=== PATIENT | female | born 1995 | race Caucasian/White ===

== ENCOUNTER 2018-07-19 18:07 | Emergency (ER) | payer BC ==
[2018-07-19 18:48] VITALS: BP 121/78
--- NOTE | 2018-07-19 19:07 | UC ---
Ear Complaint HPI - HPI Summary HPI Summary: Patient presents to urgent care reporting 6 days progressive pain in her left ear. Patient with her tragus his peers. 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 Patient's been cleaning it with alcohol and feels that more dry. Patient states she's had some crusty drainage from this ear. Patient denies fevers or chills. Patient with mild pain at the site of the earring states it has not been out approximately 6 years. Patient without fevers or chills. Patient is not immunocompromise. No known MRSA. Patient is not taking anything for pain. Patient denies any sinus congestion sore throat or teeth pain. Patient states when she chews sometimes she feels refer pain in her ear. Patient's medications reviewed this visit. Tetanus is up-to-date. - History of Current Complaint Chief Complaint: UCEar Stated Complaint: EAR PAIN Time Seen by Provider: 07/19/18 18:45 Hx Obtained From: Patient Hx Last Menstrual Period: iud Onset/Duration: Gradual Onset Severity Initially: Moderate Severity Currently: Moderate Pain Intensity: 7 Pain Scale Used: 0-10 Numeric - Allergies/Home Medications Allergies/Adverse Reactions: Allergies Allergy/AdvReac Type Severity Reaction Status Date / Time No Known Allergies Allergy Unverified 07/19/18 18:48 Home Medications: Home Medications Clobetasol 0.05% OINT* 1 applic TOPICAL BID 07/19/18 [History Confirmed 07/19/18 ] PMH/Surg Hx/FS Hx/Imm Hx Previously Healthy: Yes - Surgical History Surgical History: None - Family History Known Family History: Positive: Non-Contributory - Social History Occupation: Student Lives: With Family Alcohol Use: Weekly Substance Use Type: None Smoking Status (MU): Never Smoked Tobacco Review of Systems All Other Systems Reviewed And Are Negative: Yes Constitutional: Negative: Fever, Fatigue Skin: Positive: Other - left tragus erythema ENT: Positive: Ear Ache - left tragus Is Patient Immunocompromised?: No Physical Exam - Summary Physical Exam Summary: Vital Signs Reviewed: Yes A+Ox3, no distress Eyes: Conjunctiva Clear, NIKKO. EOM intact and full ENT: Hearing grossly normal left ear: + edema, erythema and dry yellow cyrsted discharge on tragus with piercing. Pt with mild erythema outer margin of canal. TM wnl No mastoid pain mmmoist no exudate, erythema neck: supple Respiratory: Positive: No respiratory distress, No accessory muscle use Cardiovascular: skin color reflect adequate perfusion Musculoskeletal Exam: MULLEN x 4 without difficulty Neurological: Positive: Alert, ambulatory without difficulty Psychological: Positive: Normal Response To Family Skin: Positive: no rash, no ecchymosis, + erythema Triage Information Reviewed: Yes Vital Signs: Initial Vital Signs Temp 97.9 F 07/19/18 18:45 Pulse 58 07/19/18 18:45 Resp 18 07/19/18 18:45 BP 121/78 07/19/18 18:45 Pulse Ox 100 07/19/18 18:45 Ear Complaint Course/Dx - Course Course Of Treatment: Pt with erythema and drainage from left tragus progressive x 5 days. Pt with piercing at site x 5 days. Not immunocompromised. 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 The anterior ball flew off clamp - started to look and pt stated okay - i swept with papertowel- unable to easily find - pt reassured no need to continue looking REcommend [place] with hibicleanse Rx clinda, cipro drops strict return precautions Tdap UTD - Differential Dx/Diagnosis Provider Diagnosis: Cellulitis of tragus Discharge - Sign-Out/Discharge Documenting (check all that apply): Patient Departure All imaging exams completed and their final reports reviewed: No Studies - Discharge Plan Condition: Stable Disposition: HOME Prescriptions: Ciproflox/Dexameth OTIC.SUSP* [Ciprodex Otic*] 2 drop .SEE ORDER TID #1 bottle Clindamycin HCl 300 mg PO TID #21 capsule Patient Education Materials: Cellulitis (ED) Referrals: Moira Bello MD [Primary Care Provider] - Additional Instructions: Wash your wound with Hipicleanse or warn soapy water 2 times a day for 5 days - dry complete Apply ear drops as prescribed Take antibiotics as prescribed. These will likely cause diarrhea - eating yogurt or taking probiotics will help with diarrhea If you have increased reddenss, swelling, pain or fever it is recommended you go to the emergency department for further evaluation and treatment - Billing Disposition and Condition Condition: STABLE Disposition: Home
== END 2018-07-19 19:45 | disposition home or self-care (01) ==
LOC: UCEAST 18:07
DX: H60.12 Cellulitis of left external ear (principal)
CPT/HCPCS: 99212; G0463

== ENCOUNTER 2018-07-20 14:06 | Emergency (ER) | payer BC ==
--- NOTE | 2018-07-20 14:16 | UC ---
Skin Complaint HPI - HPI Summary HPI Summary: 22 yo female presents with left ear wound. She tells me that she was seen here yesterday and had a tragus earring removed and is being treated for an infection at the site with clindamycin, anbx ear drops, and hibiclens. Today she noticed some red bumps to her left neck, chin, right eyebrow, and right cheek. Also has some drainage from her left ear. 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 Endorses some slight decreased hearing in her left ear - sounds feel muffled. Denies fever, chills, streaking redness, or increased pain. - History of Current Complaint Time Seen by Provider: 07/20/18 14:16 Stated Complaint: RECHECK OF EAR PAIN Hx Obtained From: Patient Hx Last Menstrual Period: iud Onset/Duration: Gradual Onset Onset Severity: Mild Current Severity: Mild Pain Intensity: 4 Pain Scale Used: 0-10 Numeric - Allergy/Home Medications Allergies/Adverse Reactions: Allergies Allergy/AdvReac Type Severity Reaction Status Date / Time No Known Allergies Allergy Unverified 07/19/18 18:48 PMH/Surg Hx/FS Hx/Imm Hx - Additional Past Medical History Additional PMH: None - Surgical History Surgical History: None - Family History Known Family History: Positive: Non-Contributory - Social History Lives: With Family Alcohol Use: Weekly Substance Use Type: None Smoking Status (MU): Never Smoked Tobacco Review of Systems All Other Systems Reviewed And Are Negative: Yes Constitutional: Positive: Negative Skin: Positive: Rash, Other - Left ear wound Eyes: Positive: Negative ENT: Positive: Negative Respiratory: Positive: Negative Cardiovascular: Positive: Negative Neurological: Positive: Negative Psychological: Positive: Negative Physical Exam - Summary Physical Exam Summary: GENERAL: NAD. WDWN. No pain distress. SKIN: Left neck, chin, and right cheek with scant 1mm mildly erythematous areas of skin irritation. No edema, warmth, or streaking. Left tragus: raw dry skin with crusted yellow patch. HEENT: Head: AT/NC Eyes: EOM intact. Conjunctiva clear without inflammation or discharge. Ears: Hearing grossly normal. LEFT ear: canal with mild edema and scant white/yellow discharge. TMs intact, no bulging, erythema, or edema. No pain with auricular manipulation. No streaking, warmth, or further discharged expressed from ear/tragus on palpation. Nose: Nasal mucosa pink and moist. NTTP maxillary and frontal sinus. NECK: Supple. Nontender. No lymphadenopathy. CHEST: CTAB. No r/r/w. No accessory muscle use. Breathing comfortably and in no distress. CV: RRR. Without m/r/g. Pulses intact. Cap refill <2seconds NEURO: Alert. PSYCH: Age appropriate behavior. Triage Information Reviewed: Yes Vital Signs: Vital Signs: Temp Pulse Resp BP Pulse Ox 98.3 F 79 16 118/75 100 07/20/18 14:16 07/20/18 14:16 07/20/18 14:16 07/20/18 14:16 07/20/18 14:16 Vital Signs Reviewed: Yes Course/Dx - Course Course Of Treatment: Wound culture obtained from her left ear. I suspect her other facial skin eruptions are due to surrounding inflammation or irritation as they do not seem infectious or in store representative of spreading infection at this time. Her tragus appears dry and raw, thus will have her stop the hibiclens. Will have her use bactroban ointment on the outside of her tragus and on the other skin eruptions on neck/face. Continue clindamycin and anbx ear drops. Will write her a note to not use stethoscope as I believe this is causing further irritation. Advised if she develops fever, chills, warmth to area, edema, or streaking - go to the ED. - Diagnoses Provider Diagnosis: Cellulitis of tragus Discharge - Sign-Out/Discharge Documenting (check all that apply): Patient Departure All imaging exams completed and their final reports reviewed: No Studies - Discharge Plan Condition: Stable Disposition: HOME Prescriptions: Mupirocin 2% CREAM* [Bactroban 2% CREAM*] 1 applic TOPICAL BID #1 tube Patient Education Materials: Wound Infection (DC) Forms: *Gen. Provider Communication, *Work Release Referrals: Chioma Lam MD [Primary Care Provider] - Additional Instructions: Continue your antibiotic ear drops and oral antibiotic Stop using the cleaner wall (blue bottle) Use the Bactroban ointment on the outside areas of your face, but not inside your ear. If your symptoms worsen or do not improve within 48hours - please go to the ER - Billing Disposition and Condition Condition: STABLE Disposition: Home
[2018-07-20 14:23] VITALS: BP 118/75
[2018-07-20] MEDS ORDERED: Mupirocin 2% OINT* TUBE TOPICAL ONE (17:21)
== END 2018-07-20 15:09 | disposition home or self-care (01) ==
LOC: UCEAST 14:06
DX: H60.12 Cellulitis of left external ear (principal)
CPT/HCPCS: 87070; 87077; 87186; 87205; 87640; 87641; 99211; G0463

== ENCOUNTER 2018-10-20 20:30 | Emergency (ER) | payer BC ==
[2018-10-20 20:46] VITALS: BP 121/74
--- NOTE | 2018-10-20 20:51 | UC ---
Back Pain HPI - HPI Summary HPI Summary: 22 y/o female presents to the urgent care c/o Rt lower back pain sometimes radiating to the Rt lower abdomen w/ frequency and urgency on urination since Thursday s/p riding her 4 Guy. Pt reports Hx of Spondylolithesis at age 7 after an injury and sometimes she experiences back pain after she races her 4 wheelers. Pt states pain is sharp, 8/10 today constant in the back and intermittent in the RLQ. Pt states today she developed loose stools w/ decrease appetite and chills. LMP:05/2016 since IUD was placed. Today she has mild spotting possible her period. Pt denies N/V, SOB, diaphoresis, chest pain, dizziness, vaginal discharge or Hx of STD's. She has been drinking a lot of water and last dose of Aleve 400mg was this morning. - History of Current Complaint Chief Complaint: UCBackPain Stated Complaint: BACK PAIN Time Seen by Provider: 10/20/18 20:49 Hx Obtained From: Patient Hx Last Menstrual Period: iud sin 05/2016 ?: No - spotting today Onset/Duration: Gradual Onset, Lasting Days - 3 days, Still Present, Worse Since - today RT victorina elower back pain radiating to the Timing: Constant Severity Initially: Mild Severity Currently: Moderate Pain Intensity: 8 Pain Scale Used: 0-10 Numeric Back Pain: Is Discrete @ - RT lower back pain, Radiates To - RT lower abdomen Character: Spasmodic Aggravating Factor(s): Movement Alleviating Factor(s): Rest, OTC Meds - aleve 400mg Associated Signs And Symptoms: Negative: Swelling, Redness, Bruising, Fever, Numbness, Tingling, Flank Pain, Bladder Incontinence, Bowel Incontinence, Weight Loss, Pain with Weight Bearing - Risk Factors AAA Risk Factors: Negative TAD Risk Factors: Negative Cauda Equina Risk Factors: Negative Epidural Abscess Risk Factors: Negative - Allergies/Home Medications Allergies/Adverse Reactions: Allergies Allergy/AdvReac Type Severity Reaction Status Date / Time No Known Allergies Allergy Verified 10/21/18 01:05 PMH/Surg Hx/FS Hx/Imm Hx Previously Healthy: Yes Other Neurological History: spondylolithesis at age 7 s/p back injury - Surgical History Surgical History: None - Family History Known Family History: Positive: None - Pt denies FMHX, Non-Contributory - Social History Occupation: Employed Part-time Lives: With Family Alcohol Use: Weekly Substance Use Type: None Smoking Status (MU): Never Smoked Tobacco - Immunization History Vaccination Up to Date: Yes Review of Systems All Other Systems Reviewed And Are Negative: Yes Constitutional: Positive: Negative Skin: Positive: Negative Eyes: Positive: Negative ENT: Positive: Negative Respiratory: Positive: Negative Cardiovascular: Positive: Negative Gastrointestinal: Positive: Other - loose stool today Genitourinary: Positive: Dysuria, Frequency, Urgency Motor: Positive: Negative Neurovascular: Positive: Negative Musculoskeletal: Positive: Decreased ROM - lower back, Other: - RT side lower back radiating to the RLQ Neurological: Positive: Negative Psychological: Positive: Negative Is Patient Immunocompromised?: No Physical Exam - Summary Physical Exam Summary: Vital Signs Reviewed: Yes General:Patient is a well developed and nourished female who is sitting comfortable in the examining table. Patient is not in any acute respiratory distress. Eyes: Positive: Conjunctiva Clear - PERRLA, EOMI, fundi grossly normal ENT: Positive: Normal ENT inspection, Hearing grossly normal, Pharynx normal, TMs normal Neck: Positive: Supple, Nontender, No Lymphadenopathy Respiratory: Positive: Chest non-tender, Lungs clear, Normal breath sounds, No respiratory distress Cardiovascular: Positive: RRR,S1 and S2 present, No Murmur, Pulses Normal, Brisk Capillary Refill Abdomen Description: Positive: Nontender, Abd: Flat with no distention. No surface trauma, scars, incisions. hyperactive bowel sounds present in all four quadrants. B/L lower quadrants w/ tenderness to palpation RT>LF, no guarding, or rigidity to palpation. No masses palpated, no pulsation in epigastric area. No organomegaly. Negative [place] signs. Mild periumbilical tenderness. No rebound in the lower quadrants. point tenderness over McBurneys point. Good femoral pulses bilaterally. No hernia noted. RT CVAT, No Left CVAT Musculoskeletal: Positive: Strength Intact, BACK: Patient walked into the urgent care room with symmetric ambulation, No signs of limping, antalgic, able to bear weight. No signs of trauma, No masses palpated. RT side Point tenderness at the level of L5-S1, RT CVAT, no flank ecchymosis . No sacroiliac notch tenderness, No saddle anesthesia.ROM: limited due to pain, Straight Leg Raise: negative. Patellar reflexes: brisk, symmetric Muscle strength lower extremities. Dorsiflexion/ plantar flexion of ankles. Heel/ toe walk. Lower extremities: Femoral, popliteal, posterior tibial, and dorsalis pedis pulses WNL. Pt refuse rectal exam. Neuro: Alert and oriented x 3. No acute neurological deficits. Speech is normal. Psychological: WNL Skin: Dry and warm Triage Information Reviewed: Yes Vital Signs: Initial Vital Signs Temp 100.4 F 10/20/18 20:34 Pulse 93 10/20/18 20:34 Resp 18 10/20/18 20:34 BP 121/74 10/20/18 20:34 Pulse Ox 98 10/20/18 20:34 Back Pain Course/Dx - Course Course Of Treatment: 22 y/o female presents to the urgent care c/o Rt lower back pain sometimes radiating to the Rt lower abdomen w/ frequency and urgency on urination since Thursday s/p riding her 4 Guy. Pt reports Hx of Spondylolithesis at age 7 after an injury and sometimes she experiences back pain after she races her 4 wheelers. Pt states pain is sharp, 8/10 today constant in the back and intermittent in the RLQ. Pt states today she developed loose stools w/ decrease appetite and chills. LMP:05/2016 since IUD was placed. Today she has mild spotting possible her period. Pt denies N/V, SOB, diaphoresis, chest pain, dizziness, vaginal discharge or Hx of STD's. She has been drinking a lot of water and last dose of Aleve 400mg was this morning. Hx obtained. Pt Hemodynamically stable w/ hyperactive bowel sounds present in all four quadrants. RLQ abdominal tenderness, w/ mild guarding and RT CVA tenderness on examination. UA ordered: +trace of blood and leukoesteraces. test: negative. Pt also w/ Hx of spondylolithesis s/p injury at age 7. I think patient needs blood work and images to r/o appendicitis or it can be pyelonephritis or ovarian cyst rupture or torsion. Pt's symptoms discussed w/ Dr Frank who also agrees Pt needs to go to the ER for further management to r /o appendicitis , pyelonephritis or possible ovarian cyst or ovarian torsion etc. Pt Highly recommended to go to the [facility] for further management due to her presenting symptoms. Pt offered ambulance transfer and risks of not taking it. Pt declined and states she will go by private car w/ her Mother. Pt left the clinic hemodynamically stable , A&OX3 and ambulating. - Differential Dx/Diagnosis Differential Diagnosis/HQI/PQRI: Compressive Cord Syndrome, Herniated Disc, Renal Colic, Strain, Sprain, Other - appendicitis, pyelonephritis, UTI, Provider Diagnosis: Right lower quadrant abdominal pain, Acute right-sided back pain Discharge - Sign-Out/Discharge Documenting (check all that apply): Patient Departure - Do to your presenting symptoms I think you need a higher level of care for further management in your symptoms All imaging exams completed and their final reports reviewed: No Studies - Discharge Plan Condition: Stable Disposition: HOME-RECOMMEND TO ED Patient Education Materials: Acute Abdominal Pain (ED) Referrals: Chioma Lam MD [Primary Care Provider] - Additional Instructions: I think you need a higher level or care for your presenting symptoms. I highly recommend you to go to the ER for further evaluation and treatment. The risks of not going can be , sepsis, pyelonephritis, appendicitis, peritonitis etc - Billing Disposition and Condition Condition: STABLE Disposition: Home-Recommend to ED
[2018-10-20] MEDS ORDERED: Ibuprofen TAB* 400 MG PO ONE (21:09)
== END 2018-10-20 21:47 | disposition home health service (06) ==
LOC: UCEAST 20:30
DX: R10.31 Right lower quadrant pain (principal); R10.9 Unspecified abdominal pain; M54.5 Low back pain
CPT/HCPCS: 81002; 81025; 87077; 87086; 87186; 99212; A9270-GY; G0463

== ENCOUNTER 2018-10-20 22:32 | Emergency (ER) | payer BC ==
[2018-10-21 01:11] LABS: Urine Appearance Turbid; Urine Bacteria 3+ (Absent); Urine Bilirubin Negative (Negative); Urine Blood 2+ (Negative); Urine Color Yellow; Urine Glucose Negative (Negative); Urine Ketones Negative (Negative); Urine Nitrite Positive (Negative); Urine Protein 2+(100 mg/dL) (Negative); Urine Red Blood Cell 3+(>10/hpf) (Absent); Urine Specific Gravity 1.017 (1.010-1.030); Urine Squamous Epithelial Cell Present (Absent); Urine Urobilinogen Negative (Negative); Urine White Blood Cell 3+(>20/hpf) (Absent)
[2018-10-21] MEDS ORDERED: Ketorolac INJ* 30 MG/ML 1 ML VIAL IV PUSH ONE (01:27)
[2018-10-21] MEDS ORDERED: Acetaminophen TAB* 325 MG PO ONE (01:27)
[2018-10-21] MEDS ORDERED: Levofloxacin 500 MG IVPREMIX(* 500 MG/100 ML BAG IVPB ONE (01:28)
[2018-10-21] MEDS ORDERED: NS 0.9% 1000 ML** 1,000 ML IV ONE (01:28)
[2018-10-21 03:41] LABS: Albumin/Globulin Ratio 1.2 (1-3); BUN/Creatinine Ratio 14.8 (8-20); EGFR African American 98.1 (>60); EGFR Non-African American 81.1 (>60); Globulin 3.3 g/dL (2-4)
[2018-10-21 03:42] LABS: ABS Basophils 0.1 10^3/ul (0-0.2); ABS Eosinophils 0.1 10^3/ul (0-0.6); ABS Lymphocytes 1.5 10^3/ul (1.0-4.8); ABS Monocytes 2.1 10^3/ul (0-0.8); ABS Neutrophils 16.4 10^3/ul (1.5-7.7); Albumin 4.1 g/dL (3.2-5.2); C Reactive Protein 106.25 mg/L (<8.01); Calcium 9.3 mg/dL (8.6-10.3); Eosinophil % 0.5 %; Hematocrit 37 % (35-47); Hemoglobin 12.2 g/dL (12.0-16.0); Lymphocyte % 7.6 %; Mean Corpuscular HGB Conc 33 g/dL (31-36); Mean Corpuscular Hemoglobin 30 pg (27-31); Mean Corpuscular Volume 90 fL (80-97); Mean Platelet Volume 7.9 fL (7.4-10.4); Platelet Count 230 10^3/uL (150-450); Potassium 3.8 mmol/L (3.5-5.0); Red Cell Distribution Width 13 % (10-15); Total Bilirubin 1.1 mg/dL (0.2-1.0); Total Protein 7.4 g/dL (6.4-8.9); White Blood Count 20.2 10^3/uL (3.5-10.8)
--- NOTE | 2018-10-21 04:22 | ED ---
Back Pain - HPI Summary HPI Summary: Pt is a 22 year old F presenting to [facility] accompanied by mother with a chief complaint of right flank pain with radiation to RLQ. Pain onset of 4 days ago. Patient reports fever started today with 100.4 F at [facility]. Patient denies vomiting and hx of kidney infection. 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 Symptoms aggravated by nothing. Symptoms alleviated by nothing. - History of Current Complaint Chief Complaint: EDFlankPain Stated Complaint: BACK PAIN, FROM CC PER PT Time Seen by Provider: 10/21/18 01:24 Hx Obtained From: Patient Hx Last Menstrual Period: iud sin 05/2016 Onset/Duration: Lasting Days - 4 Onset/Duration: Still Present Back Pain Location: Is Discrete @ - right flank Pain Intensity: 8 Pain Scale Used: 0-10 Numeric Aggravating Symptom(s): Nothing Alleviating Symptom(s): Nothing Associated Signs And Symptoms: Positive: Fever, Abdominal Pain - RLQ, Flank Pain - right, Other - no vomitting or urinary symptoms - Allergies/Home Medications Allergies/Adverse Reactions: Allergies Allergy/AdvReac Type Severity Reaction Status Date / Time No Known Allergies Allergy Verified 10/21/18 01:05 PMH/Surg Hx/FS Hx/Imm Hx Endocrine/Hematology History: Denies: Hx Diabetes, Hx Thyroid Disease Cardiovascular History: Denies: Hx Hypertension Respiratory History: Denies: Hx Asthma, Hx Chronic Obstructive Pulmonary Disease (COPD) GI History: Denies: Hx Ulcer - Surgical History Surgery Procedure, Year, and Place: None Infectious Disease History: No Infectious Disease History: Denies: Hx Hepatitis, Hx Human Immunodeficiency Virus (HIV), Traveled Outside the [place] in Last 30 Days - Family History Known Family History: Negative: Diabetes - Social History Alcohol Use: Weekly Hx Substance Use: No Substance Use Type: Reports: None Hx Tobacco Use: No Smoking Status (MU): Never Smoked Tobacco Review of Systems Positive: Fever Positive: Abdominal Pain - RLQ. Negative: Vomiting Positive: no symptoms reported, flank pain - right All Other Systems Reviewed And Are Negative: Yes Physical Exam - Summary Physical Exam Summary: VITAL SIGNS: Reviewed. GENERAL: Patient is a well-developed and nourished FEMALE who is lying comfortable in the stretcher. Patient is not in any acute respiratory distress. HEAD AND FACE: No signs of trauma. No ecchymosis, hematomas or skull depressions. No sinus tenderness. EYES: PERRLA, EOMI x 2, No injected conjunctiva, no nystagmus. EARS: Hearing grossly intact. Ear canals and tympanic membranes are within normal limits. MOUTH: Oropharynx within normal limits. NECK: Supple, trachea is midline, no adenopathy, no JVD, no carotid bruit, no c- spine tenderness, neck with full ROM CHEST: Symmetric, no tenderness at palpation LUNGS: Clear to auscultation bilaterally. No wheezing or crackles. CVS: Regular rate and rhythm, S1 and S2 present, no murmurs or gallops appreciated. ABDOMEN: Right CVA tenderness and RLQ tenderness EXTREMITIES: FROM in all major joints, no edema, no cyanosis or clubbing. NEURO: Alert and oriented x 3. No acute neurological deficits. Speech is normal and follows commands. SKIN: Dry and warm Triage Information Reviewed: Yes Vital Signs On Initial Exam: Initial Vitals Temp Pulse Resp BP Pulse Ox 98.9 F 84 16 119/72 98 10/20/18 22:33 10/20/18 22:33 10/20/18 22:33 10/20/18 22:33 10/20/18 22:33 Vital Signs Reviewed: Yes Diagnostics - Vital Signs Vital Signs Temp Pulse Resp BP Pulse Ox 10/21/18 00:45 99.2 F 73 16 120/72 99 10/20/18 22:33 98.9 F 84 16 119/72 98 - Laboratory Lab Results: Lab Results 10/21/18 10/21/18 10/21/18 Range/Units 00:53 02:07 02:07 WBC 20.2 H (3.5-10.8) 10^3/uL RBC 4.10 (3.70-4.87) 10^6 /uL Hgb 12.2 (12.0-16.0) g/dL Hct 37 (35-47) % MCV 90 (80-97) fL MCH 30 (27-31) pg MCHC 33 (31-36) g/dL RDW 13 (10-15) % Plt Count 230 (150-450) 10^3/uL MPV 7.9 (7.4-10.4) fL Neut % (Auto) 81.1 % Lymph % (Auto) 7.6 % [place] % (Auto) 10.6 % Eos % (Auto) 0.5 % Baso % (Auto) 0.2 % Absolute Neuts (auto) 16.4 H (1.5-7.7) 10^3/ul Absolute Lymphs (auto) 1.5 (1.0-4.8) 10^3/ul Absolute Monos (auto) 2.1 H (0-0.8) 10^3/ul Absolute Eos (auto) 0.1 (0-0.6) 10^3/ul Absolute Basos (auto) 0.1 (0-0.2) 10^3/ul Absolute Nucleated RBC 0.0 10^3/ul Nucleated RBC % 0.0 Sodium 138 (135-145) mmol/L Potassium 3.8 (3.5-5.0) mmol/L Chloride 105 (101-111) mmol/L Carbon Dioxide 24 (22-32) mmol/L Anion Gap 9 (2-11) mmol/L BUN 13 (6-24) mg/dL Creatinine 0.88 (0.51-0.95) mg/dL Est GFR ( Amer) 98.1 (>60) Est GFR (Non-Af Amer) 81.1 (>60) BUN/Creatinine Ratio 14.8 (8-20) Glucose 108 H (70-100) mg/dL Calcium 9.3 (8.6-10.3) mg/dL Total Bilirubin 1.10 H (0.2-1.0) mg/dL AST 17 (13-39) U/L ALT 8 (7-52) U/L Alkaline Phosphatase 59 (34-104) U/L C-Reactive Protein 106.25 H (<8.01) mg/L Total Protein 7.4 (6.4-8.9) g/dL Albumin 4.1 (3.2-5.2) g/dL Globulin 3.3 (2-4) g/dL Albumin/Globulin Ratio 1.2 (1-3) Urine Color Yellow Urine Appearance Turbid Urine pH 5.0 (5-9) Ur Specific [place] 1.017 (1.010-1.030) Urine Protein 2+(100 mg/dl) A (Negative) Urine Ketones Negative (Negative) Urine Blood 2+ A (Negative) Urine Nitrate Positive A (Negative) Urine Bilirubin Negative (Negative) Urine Urobilinogen Negative (Negative) Ur Leukocyte Esterase 3+ A (Negative) Urine WBC (Auto) 3+(>20/hpf) A (Absent) Urine RBC (Auto) 3+(>10/hpf) A (Absent) Ur Squamous Epith Cells Present A (Absent) Urine Bacteria 3+ A (Absent) Urine Yeast Present A (Absent) Urine Glucose Negative (Negative) Result Diagrams: 10/21/18 02:07 10/21/18 02:07 Lab Statement: Any lab studies that have been ordered have been reviewed, and results considered in the medical decision making process. Back Pain Course/Dx - Course Course Of Treatment: Pt is a 22 year old F presenting to [facility] accompanied by mother with a chief complaint of right flank pain with radiation to RLQ. Pain onset of 4 days ago. Patient reports fever started today with 100.4 F at pending sale to [facility]. Patient denies vomiting and hx of kidney infection. 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 Symptoms aggravated by nothing. Symptoms alleviated by nothing. Physical exam shows no abnormalities except for right CVA tenderness and right lower quadrant tenderness. Blood work shows no abnormalities except for WBC 20.2 H, Absolute Neuts 16.4 H, Absolute Monos 2.1 H, Glucose 108 H, Total Bilirubin 1.10 H, and C-Reactive Protein 106.25. Urinalysis shows no abnormalities except for urine protein 2+ (100 mg/dl) A, Urine Blood 2+ A, Urine Nitrate Positive A, Ur Leukocyte Esterase 3+ A, Urine WBC 3+ (>20/hpf ) A, Urine RBC 3+ (>10/hpf) A, Ur Squamous Epith Cells Present A , Urine Bacteria 3+ A, and Urine Yeast Present A. Patient was given acetaminophen 975 mg PO, Ketorolac Tromethamine 15 mg IV, Levfloxacin/Dextrose 100 mls/hr, and saline. Physician discussed discharge with patient. Patient agrees with discharge. Patient will be discharged. Patient intends to follow up with primary care provider within 3 days. - Diagnoses Provider Diagnoses: Pyelonephritis Discharge - Sign-Out/Discharge Documenting (check all that apply): Patient Departure - discharge Patient Received Moderate/Deep Sedation with Procedure: No - Discharge Plan Condition: Stable Disposition: HOME Prescriptions: Ibuprofen TAB* [Motrin TAB* 600 MG] 600 mg PO Q6H PRN #30 tab PRN Reason: Pain Or Fever Levofloxacin TAB* [Levaquin TAB*] 500 mg PO DAILY #7 tab Patient Education Materials: Kidney Infection (ED) Referrals: Chioma Lam MD [Primary Care Provider] - 3 Days Additional Instructions: Follow up with primary care provider within 3 days. PLEASE RETURN TO THE ED IMMEDIATELY FOR WORSENING OR CONCERNING SYMPTOMS. - Attestation Statements Document Initiated by Scribe: Yes Documenting Scribe: Tigist Schwab Provider For Whom Scribe is Documenting (Include Credential): Jonnathan Marks MD Scribe Attestation: IDominick Alison Kim, scribed for Jonnathan Marks MD on 10/21/18 at 0517. Status of Scribe Document: Ready
[2018-10-21 04:33] VITALS: BP 103/54
--- NOTE | 2018-10-21 16:39 | PN ---
Progress Note - Progress Note Date of Service: 10/21/18 Note: Blood culture came back positive for gram-negative bacilli on the preliminary. Call patient and spoke with patient and patient is feeling better. Told patient if feels worse or develop fever to return.
--- NOTE | 2018-10-21 18:18 | PN ---
Progress Note - Progress Note Date of Service: 10/21/18 Note: Per progress note by Dayana CUELLAR earlier today patient was called about results of preliminary blood cultures positive for gram-negative bacilli. Patient stated she was feeling better, and was advised to return to the ED if she had fever over 100.4 or was feeling worse. Patient called later at 5:55pm and I spoke to her. Patient stated she was having fever 100.9 and asked if she should come in. Patient was advised that she had gram-negative bacilli in her blood on preliminary blood culture results and that she should come into the ED for further evaluation. Parents called back at 9 PM with further questions. I called back at 9:30 PM. Patient stated she was okay with this provider speaking to her mother on the phone about her medical condition. Mother was advised as well that patient was positive on preliminary blood culture for gram-negative bacilli and that patient should return to the ED for further evaluation and treatment. Patient' s mother stated she would bring the patient over to the ED now.
== END 2018-10-21 04:32 | disposition home or self-care (01) ==
LOC: ED 22:32
DX: N12 Tubulo-interstitial nephritis, not specified as acute or chronic (principal)
CPT/HCPCS: 36415; 80053; 81003; 81015; 85025; 86140; 87040; 87077; 87186; 87205; 96365; 96375; 99282; A9270-GY; J1885; J1956

== ENCOUNTER 2018-10-21 22:12 | Inpatient (IN) | payer BC ==
[2018-10-22] MEDS ORDERED: NS 0.9% 1000 ML** 1,000 ML IV.FLUID IV ONE (00:32)
[2018-10-22] MEDS ORDERED: cefTRIAXone(*) 1 GM in NS 0.9% 50 ML* 50 ML IVPB ONE (00:34)
[2018-10-22] MEDS ORDERED: Ketorolac INJ* 30 MG/ML 1 ML VIAL IV PUSH ONE (00:44)
[2018-10-22 01:26] LABS: Hematocrit 34 % (35-47); Hemoglobin 11.6 g/dL (12.0-16.0); Mean Corpuscular HGB Conc 35 g/dL (31-36); Mean Corpuscular Hemoglobin 31 pg (27-31); Mean Corpuscular Volume 89 fL (80-97); Mean Platelet Volume 8.4 fL (7.4-10.4); Platelet Count 194 10^3/uL (150-450); Red Blood Count 3.79 10^6 /uL (3.70-4.87); Red Cell Distribution Width 13 % (10-15); White Blood Count 21.1 10^3/uL (3.5-10.8)
[2018-10-22 01:34] LABS: Activated Partial Thrombo Time 34.6 seconds (26.0-38.0); INR 1.58 (0.82-1.09)
[2018-10-22 01:43] LABS: Albumin 3.4 g/dL (3.2-5.2); Albumin/Globulin Ratio 1.2 (1-3); BUN/Creatinine Ratio 10.4 (8-20); C Reactive Protein 214.57 mg/L (<8.01); Calcium 8.4 mg/dL (8.6-10.3); EGFR African American 114.5 (>60); EGFR Non-African American 94.6 (>60); Globulin 2.9 g/dL (2-4); Potassium 3.4 mmol/L (3.5-5.0); Total Bilirubin 0.7 mg/dL (0.2-1.0); Total Protein 6.3 g/dL (6.4-8.9)
[2018-10-22] MEDS: NS 0.9% IVPB SCH ×2 (01:43→07:12)
[2018-10-22] MEDS: OXACILLIN IVPB SCH ×2 (01:43→07:12)
[2018-10-22 01:45] LABS: Troponin I 0.03 ng/mL (<0.04)
[2018-10-22 02:07] LABS: ABS Eosinophils 0.1 10^3/ul (0-0.6); ABS Lymphocytes 1.2 10^3/ul (1.0-4.8); ABS Monocytes 2.6 10^3/ul (0-0.8); ABS Neutrophils 17.1 10^3/ul (1.5-7.7); Eosinophil % 0.4 %; Lymphocyte % 5.6 %
[2018-10-22 03:00] LABS: Urine Appearance Clear; Urine Bacteria Absent (Absent); Urine Bilirubin Negative (Negative); Urine Blood 2+ (Negative); Urine Color Yellow; Urine Glucose Negative (Negative); Urine Ketones Negative (Negative); Urine Nitrite Negative (Negative); Urine Protein Negative (Negative); Urine Red Blood Cell Trace(0-2/hpf) (Absent); Urine Specific Gravity 1.008 (1.010-1.030); Urine Squamous Epithelial Cell Present (Absent); Urine Urobilinogen Negative (Negative); Urine White Blood Cell 3+(>20/hpf) (Absent)
--- NOTE | 2018-10-22 03:48 | ED ---
Abdominal Pain/Female - HPI Summary HPI Summary: This patient is a 22 year old F presenting to [facility] with a chief complaint of kidney infection since 2 days ago. Pt states she was at [facility] on 10/20/18, where she was diagnosed with a kidney infection and placed on Levofloxacin. Pt says that she was called by staff to come back in d/t + blood culture. Pt notes her pain is still present despite taking ibuprofen at 2300 yesterday. Patient denies pain to palpation. The patient rates the pain 6/10 in severity. Symptoms aggravated by nothing. Symptoms alleviated by nothing. - History of Current Complaint Chief Complaint: EDGeneral Stated Complaint: KIDNEY INFECTION PER PT Time Seen by Provider: 10/21/18 22:21 Hx Obtained From: Patient Hx Last Menstrual Period: iud sin 05/2016 ?: No Onset/Duration: Sudden Onset Timing: Constant Severity Initially: Moderate Severity Currently: Moderate Pain Intensity: 6 Pain Scale Used: 0-10 Numeric Aggravating Factor(s): Nothing Alleviating Factor(s): Nothing Associated Signs and Symptoms: Positive: Other: - negative - pain to palpation Allergies/Adverse Reactions: Allergies Allergy/AdvReac Type Severity Reaction Status Date / Time No Known Allergies Allergy Verified 10/21/18 22:18 PMH/Surg Hx/FS Hx/Imm Hx Previously Healthy: No Endocrine/Hematology History: Denies: Hx Diabetes, Hx Thyroid Disease Cardiovascular History: Denies: Hx Hypertension Respiratory History: Denies: Hx Asthma, Hx Chronic Obstructive Pulmonary Disease (COPD) GI History: Denies: Hx Ulcer - Surgical History Surgical History: None Surgery Procedure, Year, and Place: None Infectious Disease History: No Infectious Disease History: Denies: Hx Hepatitis, Hx Human Immunodeficiency Virus (HIV), Traveled Outside the [place] in Last 30 Days - Family History Known Family History: Positive: None - Pt denies FMHX, Non-Contributory Negative: Diabetes - Social History Alcohol Use: Weekly Hx Substance Use: No Substance Use Type: Reports: None Hx Tobacco Use: No Smoking Status (MU): Never Smoked Tobacco Do You Chew or Dip Tobacco: No Have You Chewed or Dipped Tobacco in the LAST YEAR: No Have You Smoked in the Last Year: No Review of Systems Negative: Fever Musculoskeletal: Other - negative - pain to palpation All Other Systems Reviewed And Are Negative: Yes Physical Exam - Summary Physical Exam Summary: VITAL SIGNS: Reviewed. GENERAL: Patient is a well-developed and nourished FEMALE who is lying comfortable in the stretcher. Patient is not in any acute respiratory distress. HEAD AND FACE: No signs of trauma. No ecchymosis, hematomas or skull depressions. No sinus tenderness. EYES: PERRLA, EOMI x 2, No injected conjunctiva, no nystagmus. EARS: Hearing grossly intact. Ear canals and tympanic membranes are within normal limits. MOUTH: Oropharynx within normal limits. NECK: Supple, trachea is midline, no adenopathy, no JVD, no carotid bruit, no c- spine tenderness, neck with full ROM CHEST: Symmetric, no tenderness at palpation LUNGS: Clear to auscultation bilaterally. No wheezing or crackles. CVS: Regular rate and rhythm, S1 and S2 present, no murmurs or gallops appreciated. ABDOMEN: Soft, right CVA tenderness. No signs of distention. No rebound no guarding, and no masses palpated. Bowel sounds are normal. EXTREMITIES: FROM in all major joints, no edema, no cyanosis or clubbing. NEURO: Alert and oriented x 3. No acute neurological deficits. Speech is normal and follows commands. SKIN: Dry and warm Triage Information Reviewed: Yes Vital Signs On Initial Exam: Initial Vitals Temp Pulse Resp BP Pulse Ox 99.2 F 108 16 125/75 100 10/21/18 22:14 10/21/18 22:14 10/21/18 22:14 10/21/18 22:14 10/21/18 22:14 Vital Signs Reviewed: Yes Diagnostics - Vital Signs Vital Signs Temp Pulse Resp BP Pulse Ox 10/22/18 02:29 96 99 10/22/18 01:46 99.6 F 10/22/18 01:44 90 98 10/22/18 01:10 100.9 F 10/22/18 00:39 123 120/70 99 10/22/18 00:32 100 10/21/18 22:14 99.2 F 108 16 125/75 100 - Laboratory Lab Results: Lab Results 10/22/18 10/22/18 10/22/18 Range/Units 01:11 01:11 01:11 WBC 21.1 H (3.5-10.8) 10^3/uL RBC 3.79 (3.70-4.87) 10^6 /uL Hgb 11.6 L (12.0-16.0) g/dL Hct 34 L (35-47) % MCV 89 (80-97) fL MCH 31 (27-31) pg MCHC 35 (31-36) g/dL RDW 13 (10-15) % Plt Count 194 (150-450) 10^3/uL MPV 8.4 (7.4-10.4) fL Neut % (Auto) 81.5 % Lymph % (Auto) 5.6 % [place] % (Auto) 12.4 % Eos % (Auto) 0.4 % Baso % (Auto) 0.1 % Absolute Neuts (auto) 17.1 H (1.5-7.7) 10^3/ul Absolute Lymphs (auto) 1.2 (1.0-4.8) 10^3/ul Absolute Monos (auto) 2.6 H (0-0.8) 10^3/ul Absolute Eos (auto) 0.1 (0-0.6) 10^3/ul Absolute Basos (auto) 0.0 (0-0.2) 10^3/ul Absolute Nucleated RBC 0.0 10^3/ul Nucleated RBC % 0.0 INR (Anticoag Therapy) 1.58 H (0.82-1.09) APTT 34.6 (26.0-38.0) seconds Sodium 136 (135-145) mmol/L Potassium 3.4 L (3.5-5.0) mmol/L Chloride 108 (101-111) mmol/L Carbon Dioxide 20 L (22-32) mmol/L Anion Gap 8 (2-11) mmol/L BUN 8 (6-24) mg/dL Creatinine 0.77 (0.51-0.95) mg/dL Est GFR ( Amer) 114.5 (>60) Est GFR (Non-Af Amer) 94.6 (>60) BUN/Creatinine Ratio 10.4 (8-20) Glucose 116 H (70-100) mg/dL Lactic Acid (0.5-2.0) mmol/L Calcium 8.4 L (8.6-10.3) mg/dL Total Bilirubin 0.70 (0.2-1.0) mg/dL AST 14 (13-39) U/L ALT 7 (7-52) U/L Alkaline Phosphatase 57 (34-104) U/L Troponin I 0.03 (<0.04) ng/mL C-Reactive Protein 214.57 H (<8.01) mg/L Total Protein 6.3 L (6.4-8.9) g/dL Albumin 3.4 (3.2-5.2) g/dL Globulin 2.9 (2-4) g/dL Albumin/Globulin Ratio 1.2 (1-3) Urine Color Urine Appearance Urine pH (5-9) Ur Specific [place] (1.010-1.030) Urine Protein (Negative) Urine Ketones (Negative) Urine Blood (Negative) Urine Nitrate (Negative) Urine Bilirubin (Negative) Urine Urobilinogen (Negative) Ur Leukocyte Esterase (Negative) Urine WBC (Auto) (Absent) Urine RBC (Auto) (Absent) Ur Squamous Epith Cells (Absent) Urine Bacteria (Absent) Urine Glucose (Negative) 10/22/18 10/22/18 Range/Units 01:11 02:29 WBC (3.5-10.8) 10^3/uL RBC (3.70-4.87) 10^6 /uL Hgb (12.0-16.0) g/dL Hct (35-47) % MCV (80-97) fL MCH (27-31) pg MCHC (31-36) g/dL RDW (10-15) % Plt Count (150-450) 10^3/uL MPV (7.4-10.4) fL Neut % (Auto) % Lymph % (Auto) % [place] % (Auto) % Eos % (Auto) % Baso % (Auto) % Absolute Neuts (auto) (1.5-7.7) 10^3/ul Absolute Lymphs (auto) (1.0-4.8) 10^3/ul Absolute Monos (auto) (0-0.8) 10^3/ul Absolute Eos (auto) (0-0.6) 10^3/ul Absolute Basos (auto) (0-0.2) 10^3/ul Absolute Nucleated RBC 10^3/ul Nucleated RBC % INR (Anticoag Therapy) (0.82-1.09) APTT (26.0-38.0) seconds Sodium (135-145) mmol/L Potassium (3.5-5.0) mmol/L Chloride (101-111) mmol/L Carbon Dioxide (22-32) mmol/L Anion Gap (2-11) mmol/L BUN (6-24) mg/dL Creatinine (0.51-0.95) mg/dL Est GFR ( Amer) (>60) Est GFR (Non-Af Amer) (>60) BUN/Creatinine Ratio (8-20) Glucose (70-100) mg/dL Lactic Acid 0.5 (0.5-2.0) mmol/L Calcium (8.6-10.3) mg/dL Total Bilirubin (0.2-1.0) mg/dL AST (13-39) U/L ALT (7-52) U/L Alkaline Phosphatase (34-104) U/L Troponin I (<0.04) ng/mL C-Reactive Protein (<8.01) mg/L Total Protein (6.4-8.9) g/dL Albumin (3.2-5.2) g/dL Globulin (2-4) g/dL Albumin/Globulin Ratio (1-3) Urine Color Yellow Urine Appearance Clear Urine pH 6.0 (5-9) Ur Specific [place] 1.008 L (1.010-1.030) Urine Protein Negative (Negative) Urine Ketones Negative (Negative) Urine Blood 2+ A (Negative) Urine Nitrate Negative (Negative) Urine Bilirubin Negative (Negative) Urine Urobilinogen Negative (Negative) Ur Leukocyte Esterase 2+ A (Negative) Urine WBC (Auto) 3+(>20/hpf) A (Absent) Urine RBC (Auto) Trace(0-2/hpf) (Absent) Ur Squamous Epith Cells Present A (Absent) Urine Bacteria Absent (Absent) Urine Glucose Negative (Negative) Result Diagrams: 10/22/18 01:11 10/22/18 01:11 Lab Statement: Any lab studies that have been ordered have been reviewed, and results considered in the medical decision making process. - Ultrasound Renal Ultrasound Interpretation Completed By: Radiologist Summary of Ultrasound Findings: IMPRESSION: Kidneys appear within normal limits. These findings were reviewed by Dr. Marks. Abdominal Pain Fem Course/Dx - Course Course Of Treatment: This patient is a 22 year old F presenting to [facility] with a chief complaint of kidney infection since 2 days ago. Pt states she was at [facility] on 10/20/18, where she was diagnosed with a kidney infection and placed on Levofloxacin. Pt says that she was called by staff to come back in d/t + blood culture. Pt notes her pain is still present despite taking ibuprofen at 2300 yesterday. Patient denies pain to palpation. The patient rates the pain 6/10 in severity. Symptoms aggravated by nothing. Symptoms alleviated by nothing. Physical exam shows right CVA tenderness. Lab results show WBC 21.1, Hgb 11.6, Hct 34, absolute neuts 17.1, absolute monos 2.6, INR 1.58, potassium 3.4, carbon dioxide 20, glucose 116, calcium 8.4, C-reactive protein 214.57, total protein 6.3, Ur specific gravity 1.008, urine blood 2+ A, Ur leukocyte esterase 2+ A, urine WBC 3+ A, Ur squamous epith cells present A. Renal US IMPRESSION: Kidneys appear within normal limits. During ED course, the pt was given Toradol INJ, fluids, Oxacillin, and Rocephin. Dx are right pyelonephritis and bacteremia. At 0120, Dr. Marks discusses pt's case with Dr. Sadler, hospitalist, who agrees to admit pt. Pt is agreeable. - Diagnoses Provider Diagnoses: Pyelonephritis of right kidney, Bacteremia Is Visit Related: No - Provider Notifications Discussed Care Of Patient With: Sukhjinder Sadler Time Discussed With Above Provider: 01:20 Instructed by Provider To: Other - Dr. Marks discusses pt's case with Dr. Sadler , hospitalist, who agrees to admit pt. Discharge - Sign-Out/Discharge Documenting (check all that apply): Patient Departure - admit Patient Received Moderate/Deep Sedation with Procedure: No - Discharge Plan Condition: Stable Disposition: ADMITTED TO [facility] Referrals: Chioma Lam MD [Primary Care Provider] - - Attestation Statements Document Initiated by Scribe: Yes Documenting Scribe: aTj Escalera Provider For Whom Scribe is Documenting (Include Credential): Dr. Jonnathan Marks MD Scribe Attestation: Taj Benton, scribed for Dr. Jonnathan Marks MD on 10/22/18 at 0404. Status of Scribe Document: Ready
--- NOTE | 2018-10-22 03:54 | HP ---
History of Present Illness - History of Present Illness Reason for Visit: Positive blood cultures History of Present Illness: This patient is a 22 year old Female diagnosed with pyelonephritis 2 days ago sent home on levaquin was called back to ED due to positive blood culture with gram negative rods. Patient still having right flank pain which is not relieved by the ibuprofen she took. No other urinary burning sensation. Fever of 100.9 at home. Past Medical History None Past Surgical History Mucoceal removal on lip Family History Mom and dad alive and well. No family history of any medical problems. Social History No smoking, alcohol in moderation, no drugs. Just graduated college [employer] degree. Allergies Allergy/AdvReac Type Severity Reaction Status Date / Time No Known Allergies Allergy Verified 10/21/18 22:18 Home Medications Medication Instructions Recorded Confirmed Type Ibuprofen TAB* [Motrin TAB* 600 MG] 600 mg PO Q6H PRN #30 tab 10/21/18 10/22/18 Rx Levofloxacin TAB* [Levaquin TAB*] 500 mg PO DAILY #7 tab 10/21/18 10/22/18 Rx Review of Systems - Measurements Intake and Output: Intake and Output Last 24 Hours 10/19/18 10/20/18 10/21/18 10/22/18 06:59 06:59 06:59 06:59 Intake Total 1820 Balance 1820 Weight 130 lb Intake: IV Fluids 1820 - Review of Systems Constitutional Symptoms: Positive: Fever Dermatology: Negative: Rash Cardiology: Negative: Chest Pain, Shortness of Breath, Palpitations Gastroenterology: Positive: Nausea Negative: Abdominal Pain, Vomiting Genital - Urinary: Positive: Other - Right flank pain. Negative: Dysuria, Polyuria Neurology: Negative: Change in Vision Objective Active Medications: Oxacillin Sodium 1 gm/ Sodium (Chloride) 50 mls @ 200 mls/hr IVPB Q6H XIMENA Last Admin: 10/22/18 01:43 Dose: 200 mls/hr Vital Signs - 8 hr 10/21/18 10/22/18 10/22/18 22:14 00:32 00:39 Temperature 99.2 F Pulse Rate 108 123 Respiratory 16 Rate Blood Pressure 125/75 120/70 (mmHg) O2 Sat by Pulse 100 100 99 Oximetry 10/22/18 10/22/18 10/22/18 01:10 01:44 01:46 Temperature 100.9 F 99.6 F Pulse Rate 90 Respiratory Rate Blood Pressure (mmHg) O2 Sat by Pulse 98 Oximetry 10/22/18 02:29 Temperature Pulse Rate 96 Respiratory Rate Blood Pressure (mmHg) O2 Sat by Pulse 99 Oximetry Oxygen Devices in Use Now: None Eyes: No Scleral Icterus, PERRLA Ears/Nose/Mouth/Throat: NL Teeth, Lips, Gums, Clear Oropharnyx, Mucous Membranes Moist Neck: NL Appearance and Movements; NL JVP, Trachea Midline Respiratory: Clear to Auscultation Cardiovascular: NL Sounds; No Murmurs; No JVD, RRR Abdominal: NL Sounds; No Tenderness; No Distention, No Hepatosplenomegaly, - - Right CVA tenderss. Extremities: No Edema Skin: No Rash or Ulcers Neurological: Alert and Oriented x 3, NL Sensation, NL Muscle Strength and Tone Nutrition: Taking PO's Result Diagrams: 10/22/18 01:11 10/22/18 01:11 Additional Lab and Data: Lab Results 10/22/18 10/22/18 10/22/18 Range/Units 01:11 01:11 01:11 WBC 21.1 H (3.5-10.8) 10^3/uL RBC 3.79 (3.70-4.87) 10^6 /uL Hgb 11.6 L (12.0-16.0) g/dL Hct 34 L (35-47) % MCV 89 (80-97) fL MCH 31 (27-31) pg MCHC 35 (31-36) g/dL RDW 13 (10-15) % Plt Count 194 (150-450) 10^3/uL MPV 8.4 (7.4-10.4) fL Neut % (Auto) 81.5 % Lymph % (Auto) 5.6 % Stanly % (Auto) 12.4 % Eos % (Auto) 0.4 % Baso % (Auto) 0.1 % Absolute Neuts (auto) 17.1 H (1.5-7.7) 10^3/ul Absolute Lymphs (auto) 1.2 (1.0-4.8) 10^3/ul Absolute Monos (auto) 2.6 H (0-0.8) 10^3/ul Absolute Eos (auto) 0.1 (0-0.6) 10^3/ul Absolute Basos (auto) 0.0 (0-0.2) 10^3/ul Absolute Nucleated RBC 0.0 10^3/ul Nucleated RBC % 0.0 INR (Anticoag Therapy) 1.58 H (0.82-1.09) APTT 34.6 (26.0-38.0) seconds Sodium 136 (135-145) mmol/L Potassium 3.4 L (3.5-5.0) mmol/L Chloride 108 (101-111) mmol/L Carbon Dioxide 20 L (22-32) mmol/L Anion Gap 8 (2-11) mmol/L BUN 8 (6-24) mg/dL Creatinine 0.77 (0.51-0.95) mg/dL Est GFR ( Amer) 114.5 (>60) Est GFR (Non-Af Amer) 94.6 (>60) BUN/Creatinine Ratio 10.4 (8-20) Glucose 116 H (70-100) mg/dL Lactic Acid (0.5-2.0) mmol/L Calcium 8.4 L (8.6-10.3) mg/dL Total Bilirubin 0.70 (0.2-1.0) mg/dL AST 14 (13-39) U/L ALT 7 (7-52) U/L Alkaline Phosphatase 57 (34-104) U/L Troponin I 0.03 (<0.04) ng/mL C-Reactive Protein 214.57 H (<8.01) mg/L Total Protein 6.3 L (6.4-8.9) g/dL Albumin 3.4 (3.2-5.2) g/dL Globulin 2.9 (2-4) g/dL Albumin/Globulin Ratio 1.2 (1-3) Urine Color Urine Appearance Urine pH (5-9) Ur Specific [place] (1.010-1.030) Urine Protein (Negative) Urine Ketones (Negative) Urine Blood (Negative) Urine Nitrate (Negative) Urine Bilirubin (Negative) Urine Urobilinogen (Negative) Ur Leukocyte Esterase (Negative) Urine WBC (Auto) (Absent) Urine RBC (Auto) (Absent) Ur Squamous Epith Cells (Absent) Urine Bacteria (Absent) Urine Glucose (Negative) 10/22/18 10/22/18 Range/Units 01:11 02:29 WBC (3.5-10.8) 10^3/uL RBC (3.70-4.87) 10^6 /uL Hgb (12.0-16.0) g/dL Hct (35-47) % MCV (80-97) fL MCH (27-31) pg MCHC (31-36) g/dL RDW (10-15) % Plt Count (150-450) 10^3/uL MPV (7.4-10.4) fL Neut % (Auto) % Lymph % (Auto) % Stanly % (Auto) % Eos % (Auto) % Baso % (Auto) % Absolute Neuts (auto) (1.5-7.7) 10^3/ul Absolute Lymphs (auto) (1.0-4.8) 10^3/ul Absolute Monos (auto) (0-0.8) 10^3/ul Absolute Eos (auto) (0-0.6) 10^3/ul Absolute Basos (auto) (0-0.2) 10^3/ul Absolute Nucleated RBC 10^3/ul Nucleated RBC % INR (Anticoag Therapy) (0.82-1.09) APTT (26.0-38.0) seconds Sodium (135-145) mmol/L Potassium (3.5-5.0) mmol/L Chloride (101-111) mmol/L Carbon Dioxide (22-32) mmol/L Anion Gap (2-11) mmol/L BUN (6-24) mg/dL Creatinine (0.51-0.95) mg/dL Est GFR ( Amer) (>60) Est GFR (Non-Af Amer) (>60) BUN/Creatinine Ratio (8-20) Glucose (70-100) mg/dL Lactic Acid 0.5 (0.5-2.0) mmol/L Calcium (8.6-10.3) mg/dL Total Bilirubin (0.2-1.0) mg/dL AST (13-39) U/L ALT (7-52) U/L Alkaline Phosphatase (34-104) U/L Troponin I (<0.04) ng/mL C-Reactive Protein (<8.01) mg/L Total Protein (6.4-8.9) g/dL Albumin (3.2-5.2) g/dL Globulin (2-4) g/dL Albumin/Globulin Ratio (1-3) Urine Color Yellow Urine Appearance Clear Urine pH 6.0 (5-9) Ur Specific [place] 1.008 L (1.010-1.030) Urine Protein Negative (Negative) Urine Ketones Negative (Negative) Urine Blood 2+ A (Negative) Urine Nitrate Negative (Negative) Urine Bilirubin Negative (Negative) Urine Urobilinogen Negative (Negative) Ur Leukocyte Esterase 2+ A (Negative) Urine WBC (Auto) 3+(>20/hpf) A (Absent) Urine RBC (Auto) Trace(0-2/hpf) (Absent) Ur Squamous Epith Cells Present A (Absent) Urine Bacteria Absent (Absent) Urine Glucose Negative (Negative) Diagnostic Imaging: US Retroperitoneal Limited, Kidneys FINDINGS: Right kidney: Right kidney measures 11 cm and appears within normal limits. Left kidney: Left kidney measures 11 cm and appears within normal limits. IMPRESSION: Kidneys appear within normal limits. Assess/Plan/Problems-Billing Assessment: 22yoF here due to positive blood cultures with gram negative rods. Likely sepsis secondary to pyelonephritis. - Patient Problems (1) Sepsis due to gram-negative UTI Current Visit: Yes Status: Acute Code(s): A41.50 - GRAM-NEGATIVE SEPSIS, UNSPECIFIED; N39.0 - URINARY TRACT INFECTION, SITE NOT SPECIFIED SNOMED Code(s ): 335644688 Comment: Continue ceftriaxone. Follow up cultures and titrate ABx accordingly. (2) Gram-negative bacteremia Current Visit: Yes Status: Acute Code(s): R78.81 - BACTEREMIA SNOMED Code( s): 436415247105 (3) Pyelonephritis Current Visit: Yes Status: Acute Code(s): N12 - TUBULO-INTERSTITIAL NEPHRITIS, NOT SPCF ACUTE OR CHRONIC SNOMED Code(s): 73188065 (4) DVT prophylaxis Current Visit: Yes Status: Acute Code(s): Z29.9 - ENCOUNTER FOR PROPHYLACTIC MEASURES, UNSPECIFIED SNOMED Code(s): 098860691 Comment: early ambulation
[2018-10-22] MEDS ORDERED: Acetaminophen TAB* 325 MG PO PRN (04:11)
[2018-10-22] MEDS ORDERED: Ibuprofen TAB* 600 MG PO PRN (04:18)
[2018-10-22] MEDS: NS 0.9% 1000 ML** 1,000 ML IV SCH ×2 (06:40→14:45)
[2018-10-22 11:54] VITALS: BP 102/53
--- NOTE | 2018-10-22 13:17 | CONS ---
CONSULTATION REPORT: DATE OF CONSULT: 10/22/18 PRIMARY CARE PROVIDER: Dr. Chioma Lam. REQUESTING PHYSICIAN: Raisa Dunn NP. CONSULTING SERVICE: Infectious Disease. PROVIDER: Jessica Hong NP ATTENDING PHYSICIAN: Dr. Varinder Mejia * (dictated by JESSICA HONG NP). REASON FOR CONSULT: Gram-negative bacteremia. IMPRESSION: Gram-negative bacteremia secondary to pyelonephritis. The patient has a positive urinalysis, urine culture from ED visit on 10/20/18 pending. Preliminary blood cultures are pending from 10/21/18. Fevers and chills have resolved. She has right CVA tenderness. She had a renal ultrasound showing normal kidneys, no hydronephrosis or renal calculi. RECOMMENDATIONS: Recommend continuing ceftriaxone until culture results are back. There is no urine culture from 10/21/18 back yet and only preliminary blood culture results are back. Further recommendations will be based on the culture results. HISTORY OF PRESENT ILLNESS: Ms. Oliva is a 22-year-old female with no significant past medical history who states that approximately 5 days ago, she developed right back pain, denies any history of kidney stones. She was seen in the emergency room on 10/21/18 as the pain was radiating into her right lower quadrant and had started to develop fevers with a fever of 100.4 at [facility]. She denied any nausea or vomiting. She also denied any urinary symptoms. Nothing alleviated or aggravated her symptoms. While in the emergency room, she was found to have right CVA tenderness and right lower quadrant tenderness with a white blood cell count of 20,200, absolute neutrophils 16.4, total bilirubin 1.1, CRP of 106.25. Urinalysis with 2+ protein, 2+ blood, nitrite positive, leukocyte esterase 3+, wbc's 3+, rbc's 3+, squamous epithelial cells present, bacteria 3+ and yeast present. She was given Tylenol, Toradol, IV Levaquin and was discharged home to follow up with her primary care provider. She was then called by the emergency room to return when her blood culture returned with gram-negative bacilli. She re-presented to the emergency room, said that she continued to have right flank pain, that was not aggravated or alleviated by anything. She had labs showing a white blood cell count of 21,100, she was noted to have a low potassium 3.4, CRP 214.57, her previously elevated total bilirubin had resolved. She had a repeat urinalysis showing 2+ blood, 2+ leukocyte esterase, 3+ wbc's, squamous epithelial cells present. She was referred to the hospitalist service for admission. While in the hospital, she had been afebrile with the exception of low-grade fever at 1:10 a.m. of 100.9. She did not have repeat labs since her workup early this morning in the ER. She denies any family history or personal history of kidney stones. She currently denies fevers, chills, joint pains, muscle pain, back pain. She reports lower abdominal cramping that has been present throughout the course of her illness. She had nausea yesterday but this has resolved today. Denies vomiting or diarrhea. She was having loose stools since Thursday. Denies any rash or recent travel. She was placed on ceftriaxone. PAST MEDICAL HISTORY: None. PAST SURGICAL HISTORY: Status post excision of mucocele of the lip. MEDICATIONS: Home medications: 1. Levaquin 500 mg daily. 2. Ibuprofen 600 mg by mouth every 6 hours as needed for fever or pain. Hospital medications: 1. Acetaminophen 650 mg by mouth every 4 hours as needed for fever and pain. 2. Ceftriaxone 1 g IV q.12 hours. 3. Ibuprofen 600 mg by mouth every 6 hours as needed for fever or pain. 4. Sodium chloride 125 mL an hour. ALLERGIES: No known drug allergies. FAMILY HISTORY: Denies family history of coronary artery disease or diabetes. Maternal grandfather with history of lung cancer. No family history of recurrent or resistant infections. SOCIAL HISTORY: Occasional alcohol use, denies tobacco or recreational drug use. REVIEW OF SYSTEMS: I performed a 10-point review of systems. All other pertinent positives and negatives are mentioned in the history of present illness. The remaining review of systems are negative. PHYSICAL EXAM: Vital Signs: Temperature 97.6, heart rate 72, respiratory rate 18, O2 sats 100% on room air, blood pressure 115/70. General Appearance: She is alert, appears to be in no acute distress. Head: Normocephalic, atraumatic. EENT: Pupils are equal and reactive to light. Extraocular movements are intact. No conjunctival hemorrhage. Moist mucous membranes, no thrush. Neck: Supple, no lymphadenopathy. Neurological: Alert and oriented x3. Cranial nerves II through XII are grossly intact. Cardiovascular: Regular rate and rhythm. S1, S2 present. No murmurs, rubs, or gallops heard. Respiratory: No accessory muscle use. The lungs are clear to auscultation bilaterally. Abdomen: Bowel sounds present. Abdomen is soft with suprapubic tenderness, nondistended. Right CVA tenderness. Extremities: No lower extremity edema. Musculoskeletal: No clubbing or cyanosis noted. No tenderness to palpation of the neck spine or back. Psychological: Calm and cooperative. Skin: No rashes or abnormalities seen. DIAGNOSTIC STUDIES/LAB DATA: Laboratory data; sodium 136, potassium 3.4, chloride 108, CO2 of 20, BUN 8, creatinine 0.77, glucose 116. White blood cell count 21.1, hemoglobin of 11.6, hematocrit 34, platelet count 194, CRP 214.57. Urinalysis as above. Please see impression and recommendations outlined above as discussed with Raisa Dunn NP. Thank you for asking us to see Ms. Oliva in consultation. The case has been reviewed with my attending, Dr. Varinder Mejia. Reviewed by JESSICA HONG, AMOS 10/25/18 1645 [id number]/[facility] #: [id number] RAJNI
--- NOTE | 2018-10-22 23:19 | DS ---
CC: Dr. Chioma Lam * DISCHARGE SUMMARY: DATE OF ADMISSION: 10/21/18 DATE OF DISCHARGE: 10/22/18 PRIMARY CARE PROVIDER: Dr. Chioma Lam. ATTENDING PHYSICIAN: Dr. Gibson * (dictated by Jose Kaufman NP). PRIMARY DIAGNOSES: 1. Sepsis due to gram-negative urinary tract infection. 2. Gram-negative bacteremia. 3. Pyelonephritis. CONSULTATIONS WHILE IN THE HOSPITAL: Dr. Varinder Mejia, Infectious Disease. STUDIES WHILE IN THE HOSPITAL: Renal ultrasound: Kidneys appear within normal limits. DISCHARGE HOME MEDICATIONS: Continued Home Medications: 1. Ibuprofen 600 mg p.o. q.6 hours p.r.n. 2. Acetaminophen 650 mg p.o. q.4 hours p.r.n. New home medications: 1. Levaquin 500 mg p.o. daily x10 days. HISTORY OF PRESENT ILLNESS/HOSPITAL COURSE: Ms. Oliva is a 22-year-old female with no past medical history; who presents to the emergency department on , as she received a call from the emergency department to return due to positive blood cultures, gram-negative rods. Please see history and physical dictated by Sabrina Sadler MD for complete summary of the events leading up to the hospitalization, but in short the patient was diagnosed with pyelonephritis 2 days prior to presenting to the emergency room and she was placed on Levaquin. The patient was then called by the ED due to positive blood cultures. The patient reported she was still having a right flank pain and did have a fever of 100.9 at home. Given these findings, the patient was admitted to the medical floor for further evaluation. During this hospitalization, the patient received IV antibiotics in the form of ceftriaxone and oxacillin. The patient had repeat vital signs and she was noted to be febrile at 100.9 while in the emergency department, but throughout the remainder of her hospital stay, she was afebrile. The patient was also noted to be tachycardic during her emergency room visit, but normalized during her hospital stay. The patient received IV fluids and Toradol for pain. The patient was evaluated by Nadia Qiu NP and Dr. Varinder Mejia from Infectious Disease. They recommended the patient be discharged home on Levaquin p.o. x10 additional days. They also recommended the patient follow up with their office in 1 to 2 weeks. The patient stated she feels ready for discharge. The patient is stable for discharge home. Vital Signs: Temp 98.4, HR 74, RR 16, O2 saturation 100% on room air, BP 102/ 53. REVIEW OF SYSTEMS: The patient reports very mild right low back pain. The patient denies urinary symptoms, fever, chills, nausea, vomiting, shortness of breath. A 14-point review of systems was completed and all were negative. PHYSICAL EXAMINATION: General: Ms. Oliva is a 22-year-old female who was sitting in bed. Appears to be in no acute distress. Appears stated age. HEENT : EOMs intact. Oral mucosa is moist without lesion. Posterior pharynx is clear. Neck: Supple. No lymphadenopathy. Cardiac: S1, S2 present. No murmurs, rubs or gallops. Regular rate and rhythm. Respiratory: Lungs are clear to auscultation. Good aeration. No wheezes, rhonchi or rubs. Abdomen: Soft, nontender. Bowel sounds normoactive. No CVA tenderness on left. Slight CVA tenderness on right. Extremities: No edema. No clubbing or cyanosis. Pedal pulses 2+ bilaterally. Musculoskeletal: No pain or deformities. Skin: Grossly intact. Neuro: Neuro exam is grossly intact. No focal deficits or weakness. DIAGNOSTIC STUDIES/LAB DATA: Laboratory Data: WBC 21.1, hemoglobin 11.6, hematocrit 34, platelets 194. Sodium 136, potassium 3.4, chloride 108, carbon dioxide 20, BUN 18, creatinine 0.77, glucose 116, lactic acid 0.5. DISCHARGE PLAN/FOLLOWUP: 1. Sepsis due to gram-negative urinary tract infection: The patient did meet sepsis criteria on admission, as she had an elevated temp, tachycardia, and sores. The patient received antibiotics, fluid bolus, and was pancultured while in the emergency room. The patient's sepsis has resolved. 2. Gram negative bacteremia: As mentioned above, the patient was called back to the emergency room given gram-negative rods found in her blood from previous visit. Given the findings of bacteremia, Dr. Varinder Mejia was consulted and recommended the patient continue Levaquin 500 mg p.o. daily x10 days and follow up with him in 1 to 2 weeks. 3. Pyelonephritis: The patient had a renal ultrasound, which was unremarkable. The patient has mild right sided CVA tenderness. We discussed increasing fluid intake, monitoring self for fever, and continuing Tylenol/ ibuprofen for pain and fever, and continuing Levaquin 500 mg p.o. daily x10 days. The patient stated understanding. 4. Followup: The patient should follow up with Dr. Varinder Mejia in 1 week. I have encouraged the patient and mother to call the office if she does not hear from them. The patient should follow up with her primary care doctor, Dr. Lam in 1 to 3 days. 5. Education: The patient and mother educated on signs and symptoms of new or worsening conditions, and when to return to the emergency department. Both stated understanding. This is a summarized report of a complex medical history and hospital stay. For further details, please see the entire medical record. TIME SPENT: Approximately 35 minutes was spent on this discharge, greater than half the time was spent [id number] with the patient discussing discharge plans and instructions. PLAN: This plan was discussed with my attending, Dr. Gibson, who is in agreement with my plan of care. JOSE KAUFMAN, ROBERTO [id number]/[facility] #: [id number] RAJNI
[2018-10-23] MEDS ORDERED: cefTRIAXone(*) 1 GM in NS 0.9% 50 ML* 50 ML IVPB SCH (06:00)
== END 2018-10-22 17:15 | disposition home or self-care (01) | DRG 720 ==
LOC: ED 22:12 → MED 10-22 04:11
PROVIDERS: ADMIT Internal Medicine; ATTEND Internal Medicine
DX: A41.50 Gram-negative sepsis, unspecified (principal); N12 Tubulo-interstitial nephritis, not specified as acute or chronic; Z80.1 Family history of malignant neoplasm of trachea, bronchus and lung; Z72.89 Other problems related to lifestyle
CPT/HCPCS: 36415; 76775; 80053; 81003; 81015; 83605; 84484; 85025; 85610; 85730; 86140; 87040; 87086; 99285; A9270-GY; J0696; J1885; J2700